=== PATIENT | female | born 1950 | race Caucasian/White ===

== ENCOUNTER 2018-06-06 11:12 | Day surgery (SDC) | payer MEDICARE ==
[2018-06-03 09:07] VITALS: BMI 25.7
[~2018-06-06 11:12] MED LIST: Dexamethasone 20 MG/5 ML VIAL ONE; Lidocaine 1% PF 5 ML VIAL ONE; Ondansetron HCl/PF 4 MG/2 ML Vial ONE; PROPOFOL 200 MG/20 ML VIAL ONE
[2018-06-06] MEDS ORDERED: cefTRIAXone\\ROCEPHIN 2 GM in Sodium Chloride 0.9% 100 ML IVPB SCH (11:30)
[2018-06-06 11:56] LABS: #Eosinphils 0.1 thou/uL (0.0-0.7); #Lymphocytes 1.3 thou/uL (1.20-3.40); #Monocytes 0.3 thou/uL (0.11-0.59); #Neutrophils 3.4 thou/uL (1.40-6.50); %Basophils 0.9 % (0.0-1.0); %Eosinophils 2.8 % (0.0-10.0); %Lymphocytes 24.6 % (21.0-51.0); %Monocytes 5.9 % (0.0-10.0); %Neutrophils 65.9 % (42.0-75.0); Hemoglobin 13.2 g/dL (12.0-16.0); Mean Corpuscular HGB CONC 32.9 g/dL (32.0-36.0); Mean Corpuscular Volume 81.9 fL (78.0-98.0); Mean Platelet Volume 6.8 fL (7.4-10.4); Platelet Count 251 thou/uL (130-400); RBC Distribution Width 13.6 % (11.5-14.5); White Blood Cell (WBC) Count 5.2 thou/uL (4.8-10.8)
[2018-06-06 12:02] LABS: INR-International Normal Ratio 1.1; PTT 30.9 SEC (22.9-36.1); Prothrombin Time 13.9 SEC (12.0-14.7)
[2018-06-06 12:20] LABS: Anion Gap 15 mmol/L (10-20); BUN (Urea Nitrogen) 18 mg/dL (9.8-20.1); Calc. Creatinine Clearance 72 mL/min (70-130); Calcium 9.5 mg/dL (7.8-10.44); Carbon Dioxide 20 mmol/L (23-31); Chloride 105 mmol/L (98-107); Estimated GFR-MDRD 61; Glucose 127 mg/dL (80-115); Potassium 4.3 mmol/L (3.5-5.1); Sodium 136 mmol/L (136-145)
[2018-06-06] MEDS ORDERED: Iothalamate Meglumine 60% 50 ML VIAL FS ONE (12:54)
[2018-06-06] MEDS ORDERED: Fentanyl 100 MCG/2 ML VIAL ONE ×2 (14:40→15:05)
[2018-06-06] MEDS ORDERED: HYDROcodone/Acetaminophen 5/325 mg Tablet ONE (15:48)
--- NOTE | 2018-06-06 17:49 | RAD ---
RIGHT RETROGRADE PYELOGRAM: Date: 06/06/18 HISTORY: Stent placement. FINDINGS/IMPRESSION: Nine fluoroscopic images during a right retrograde pyelogram demonstrate opacification of the right u reter and pelvicaliceal system, and placement of a right ureteric stent. POS: YLUIANA
--- NOTE | 2018-06-06 21:34 | OP ---
DATE OF PROCEDURE: 06/06/2018 PREOPERATIVE DIAGNOSES: Right lower quadrant pain, right hydro and microhematuria. POSTOPERATIVE DIAGNOSES: Right lower quadrant pain, right hydro and microhematuria. PROCEDURE PERFORMED: Cysto right rigid ureteroscopy with brushings and biopsy of distal right ureter and right flexible ureteroscopy, right stent placement with retrograde. SURGEON: Dr. Will Pendleton. ANESTHESIA: General. ESTIMATED BLOOD LOSS: Probably 25-30s. DRAINS PLACED: A 4.8 x 24 cm right double-J stent. A string was not left attached. FINDINGS: She had no evidence of urethral stenosis. There were 2 ureteral orifices. There was a li ttle old blood clot sitting right at the right ureteral orifice. There were no bladder tumors, forei gn bodies, or stone. The right distal 1-2 cm of ureter were inflamed and somewhat edematous. The re maining ureter both distal, mid, proximal renal pelvis and caliceal system were free of any abnormali ties except a few tiny little embedded calcifications in the renal papilla. brushings of this abnormal distal right ureter as well as 2 biopsies of it. At the end of the procedure when the bladd er was emptied emptied into a container and allowed to settle and then we sent off some of this fluid for cytology as most of this was obtained from working up the right ureter. PROCEDURE IN DETAIL: After obtaining written and verbal consent from the patient after receiving IV antibiotics, she was taken to the operating suite. She was placed in the supine position on the galina tment table and PlexiPulses were placed on her lower extremities and turned on. She was given a gene ral anesthetic and oral obturator intubation. She was then placed in the dorsal lithotomy position a nd sterilely prepped and draped. Fluoroscopy unit was brought in to help with imaging. Cystoscopy w as performed with a 22-Gabonese sheath. This was well lubricated, passed under direct vision through t he female urethra and into the urinary bladder with aid of a 30-degree lens and video camera and jordyn tor. The bladder was examined with the 30 degree and 70 degree lens and filled and emptied a number of times. At this point, back to the 30 degree lens, we passed a 0.038 guidewire up the right ureter without difficulty. Fluoroscopy shows it was up in the region of the renal pelvis. We then went ah ead and removed these instruments, leaving the guide wire in place and brought in a short small calib er rigid ureteroscope, placed it under direct vision with the aid of a video camera monitor through the female urethra and then up the right ureter. We were able to go all the way up to the proximal u reter and the ureter looked normal in its entirety except for the distal 1-2 cm, which were hyperemic and somewhat swollen. We then brought in a brushing set and did brushings of this area under direct vision and these were sent off to pathology. Then we used a small ureteroscopic biopsy forceps to g et a couple biopsies of this area and they were sent off. At this point, we went ahead and fit the s econd guidewire up the right ureter and then over that placed a flexible ureteroscope and then passed this that about midway of the right ureter before removing that guidewire and then under direct visi on a navigating the proximal ureter and the entire renal pelvis and caliceal system looking at each a nd infundibulum and renal pelvis with the findings above. We then looked the entire ureter on the wa y out. Our remaining guidewire was backloaded through the cystoscope. Once this into the bladder, w e opened up, we drained the bladder contents, which were not yet been drained into a collecting conta iner and back couple 100 mL, we let that sit for a few minutes and pulled off the top of it leaving t he distal sent for cytology. We then did a retrograde study with a 5-Gabonese Pollack catheter p lacing up over the right ureteral guidewire into the area of the renal pelvis, removed the guidewire and injected contrast to fill out the entire collecting system. There was no extravasation is a linda le bit of dilatation still down to the right distal ureter. We then replaced the wire and then passe d the stent over pushing up in place with aid of a pusher so its proximal end coiled in the renal pel vis and its distal end coiled in the bladder when the wire was removed. The bladder was then once ag ain drained and the instruments were removed. The patient was taken out of dorsal lithotomy position , awakened, extubated, and taken by stretcher to the recovery room.
== END 2018-06-06 16:22 | disposition home or self-care (01) ==
LOC: SDC 11:12
PROVIDERS: ATTEND Urology
PROC: 0TB68ZX Excision of Right Ureter, Via Natural or Artificial Opening Endoscopic, Diagnostic (ICD-10-PCS; principal; 2018-06-06)
PROC: 0T768DZ Dilation of Right Ureter with Intraluminal Device, Via Natural or Artificial Opening Endoscopic (ICD-10-PCS; 2018-06-06)
DX: N28.89 Other specified disorders of kidney and ureter (principal); N13.30 Unspecified hydronephrosis; E11.9 Type 2 diabetes mellitus without complications; I10 Essential (primary) hypertension; K21.9 Gastro-esophageal reflux disease without esophagitis; Z79.84 Long term (current) use of oral hypoglycemic drugs; Z79.82 Long term (current) use of aspirin; Z79.899 Other long term (current) drug therapy; Z88.8 Allergy status to other drugs, medicaments and biological substances
CPT/HCPCS: 52332; 52354; 74420; 80048; 85025; 85610; 85730; 88112; 88305; 88342; 96374; C1758; 88104; J0696; J1100; J2001; J2405; J2704; J3010; J7050; Q9961

== ENCOUNTER 2019-03-13 12:04 | Outpatient (CLI) | payer MEDICARE ==
[~2019-03-13 12:04] MED LIST changes: -Dexamethasone 20 MG/5 ML VIAL ONE; +Iopamidol 370 76% 100 ML VIAL ONE; -Lidocaine 1% PF 5 ML VIAL ONE; -Ondansetron HCl/PF 4 MG/2 ML Vial ONE; -PROPOFOL 200 MG/20 ML VIAL ONE
--- NOTE | 2019-03-13 13:11 | CT ---
EXAM: CT Abdomen Pelvis W WO con PROVIDED CLINICAL HISTORY: Urinary tract infection. Transitional cell carcinoma right ureter. COMPARISON: Noncontrast CT abdomen and pelvis on 08/21/2012 FINDINGS: Linear scarring is again seen at the right lung base. The lung bases are otherwise clear. There are 2 nonobstructing left renal calculi seen in the midportion left kidney largest measuring 7 mm. No right renal calculus is seen, and there are no ureteral calculi seen bilaterally. There is no hydronephrosis seen. No enhancing renal mass is seen. There is symmetric nephrogram phase of enhan cement of each kidney. The urinary bladder has a normal CT appearance. Liver, spleen, pancreas, and bilateral adrenal glands demonstrate a normal CT appearance. Vascular calcifications are seen in the abdominal aorta and iliac arteries. Uterus is not visualized, likely related to prior hysterectomy. The left gonadal vein is prominent in size, but this is a stable finding when compared to the study i n 2011. No free fluid, fluid collection, or lymphadenopathy is seen in the abdomen or pelvis. There is colonic diverticulosis. A tiny fat-containing umbilical hernia is present. The appendix is visualized and normal in caliber. Degenerative changes are seen at the lumbosacral junction. IMPRESSION: 1. Nonobstructing left renal calculi. 2. No evidence of hydronephrosis, and no ureteral calculus is seen.
== END 2019-03-13 12:05 | disposition home or self-care (01) ==
LOC: CT 12:04
PROVIDERS: ATTEND Urology
DX: N39.0 Urinary tract infection, site not specified (principal); N20.0 Calculus of kidney
CPT/HCPCS: 74178; 82565; Q9967